=== PATIENT | male | born 1950 | race Caucasian/White ===

== ENCOUNTER → 2023-01-15 | Outpatient (CLI) | payer MEDICARE, OTHER ==
[~2023-01-15] MED LIST: DILANTIN 100MG100 MG; INDOCIN50 MG PO; PHENOBARBITAL100 M1
== END ==
LOC: COL.RAD 10:19
DX: R16.1 Splenomegaly, not elsewhere classified (principal); D69.6 Thrombocytopenia, unspecified

== ENCOUNTER 2024-01-21 10:00 | Outpatient (RCR) | payer MEDICARE, OTHER ==
[2023-12-31 16:11] VITALS: PULSE 78; TEMP 99
[2024-01-07 10:01] VITALS: BP 147/71; PULSE 75; TEMP 97.8
[2024-01-14 10:17] VITALS: BP 115/57; PULSE 53; TEMP 98.5
[2024-01-14 10:43] LABS: ALBUMIN 3.8 gm/dL (3.4-4.8); BILIRUBIN,TOTAL 0.5 mg/dL (0.2-1.2); CALCIUM 9.3 mg/dL (8.4-10.2); CREATININE, serum 0.94 mg/dL (0.72-1.25); POTASSIUM 4.2 mmol/L (3.5-4.5); TOTAL PROTEIN 6.3 gm/dL (6.2-8.1)
[2024-01-14 10:52] LABS: HEMATOCRIT 42.7 % (42.0-52.0); MEAN CELL VOLUME 88 fl (80.0-100.0); MEAN CORPUSCULAR HEMOGLOBIN 27 pg (27-31); MEAN CORPUSCULAR HGB CONC 30 g/dl (33.0-37.0); MEAN PLATELET VOLUME 11.3 fl (7.4-10.4); PLATELET COUNT 379 K/mm3 (130-400); RED BLOOD COUNT 4.87 M/mm3 (4.20-5.60); REDCELL DISTRIBUTION WIDTH-CV 19.7 % (11.5-14.5)
[2024-01-14 11:36] LABS: LYMPHOCYTE 8 % (20.0-51.0); NEUTROPHILS 84 % (42.0-75.2); OVALOCYTES 2+; PLATELET ESTIMATE NORMAL (NORMAL); SCHISTOCYTES 1+
[2024-01-14 11:37] LABS: BURR CELLS 1+
[~2024-01-21] VITALS: Ht 182.9 cm; Wt 92.0 kg
[~2024-01-21 10:00] MED LIST changes: +ASPIRIN E.C. 8181 MG PO; +FIRST-MOUTHWASH1 KIT PO; +KEPPRA750 MG PO; +NOXAFILTAB PO; +NS Flush 10 ML SYRINGE (Power PICC Line - 10 mL PRN) ICA; +NS Flush 10 ML SYRINGE (Power PICC Line - 10 mL Q12hr) ICA SCH; +ZOVIRAX800 MG PO
[2024-01-21 10:13] VITALS: BP 108/67; PULSE 66; TEMP 98.6
[2024-01-21 10:35] LABS: HEMATOCRIT 45.2 % (42.0-52.0); HEMOGLOBIN 13.9 g/dl (13.5-18.0); MEAN CELL VOLUME 86 fl (80.0-100.0); MEAN CORPUSCULAR HEMOGLOBIN 27 pg (27-31); MEAN CORPUSCULAR HGB CONC 31 g/dl (33.0-37.0); PLATELET COUNT 144 K/mm3 (130-400); RED BLOOD COUNT 5.23 M/mm3 (4.20-5.60); REDCELL DISTRIBUTION WIDTH-CV 19.5 % (11.5-14.5)
[2024-01-21 10:45] LABS: ALBUMIN 4.1 gm/dL (3.4-4.8); BILIRUBIN,TOTAL 0.9 mg/dL (0.2-1.2); CALCIUM 9.4 mg/dL (8.4-10.2); CREATININE, serum 1.2 mg/dL (0.72-1.25); POTASSIUM 4.8 mmol/L (3.5-4.5); TOTAL PROTEIN 6.6 gm/dL (6.2-8.1)
[2024-01-21 11:04] LABS: LYMPHOCYTE 20 % (20.0-51.0); NEUTROPHILS 77 % (42.0-75.2); OVALOCYTES 1+; PLATELET ESTIMATE NORMAL (NORMAL)
== END 2024-01-21 14:05 | disposition home or self-care (01) ==
LOC: EUO 10:00
PROVIDERS: Internal Medicine
DX: C92.01 Acute myeloblastic leukemia, in remission (principal); D69.0 Allergic purpura

== ENCOUNTER 2024-02-04 10:00 | Outpatient (RCR) | payer MEDICARE, OTHER ==
[2024-01-28 10:24] VITALS: BP 117/67; PULSE 65; TEMP 98
[2024-01-28 10:41] LABS: HEMATOCRIT 41.9 % (42.0-52.0); HEMOGLOBIN 13.4 g/dl (13.5-18.0); MEAN CELL VOLUME 85 fl (80.0-100.0); MEAN CORPUSCULAR HEMOGLOBIN 27 pg (27-31); MEAN CORPUSCULAR HGB CONC 32 g/dl (33.0-37.0); RED BLOOD COUNT 4.96 M/mm3 (4.20-5.60); REDCELL DISTRIBUTION WIDTH-CV 19.3 % (11.5-14.5)
[2024-01-28 10:43] LABS: PLATELET COUNT 32 K/mm3 (130-400)
[2024-01-28 11:08] LABS: ALBUMIN 3.9 gm/dL (3.4-4.8); BILIRUBIN,TOTAL 0.6 mg/dL (0.2-1.2); CALCIUM 9.8 mg/dL (8.4-10.2); CREATININE, serum 1.11 mg/dL (0.72-1.25); POTASSIUM 4.2 mmol/L (3.5-4.5); TOTAL PROTEIN 6.5 gm/dL (6.2-8.1)
[2024-01-28 12:55] LABS: EOSINOPHIL 6 % (0-4); LYMPHOCYTE 43 % (20.0-51.0); NEUTROPHILS 33 % (42.0-75.2)
[2024-01-28 12:56] LABS: ANISOCYTOSIS 2+; HYPOCHROMIA 2+; PLATELET ESTIMATE DECREASED (NORMAL)
[2024-01-28 12:57] LABS: OVALOCYTES 2+
[~2024-02-04] VITALS: Ht 182.9 cm; Wt 95.3 kg
[~2024-02-04 10:00] MED LIST changes: +NS Flush 10 ML SYRINGE (PICC Line - 10 mL Daily if not in use) ICA SCH; +NS Flush 10 ML SYRINGE (PICC Line - 10 mL PRN) ICA; -NS Flush 10 ML SYRINGE (Power PICC Line - 10 mL PRN) ICA; -NS Flush 10 ML SYRINGE (Power PICC Line - 10 mL Q12hr) ICA SCH
[2024-02-04 10:09] VITALS: BP 110/75; PULSE 65; TEMP 98.9
[2024-02-04 10:32] LABS: HEMATOCRIT 41.5 % (42.0-52.0); HEMOGLOBIN 12.8 g/dl (13.5-18.0); MEAN CELL VOLUME 86 fl (80.0-100.0); MEAN CORPUSCULAR HEMOGLOBIN 27 pg (27-31); MEAN CORPUSCULAR HGB CONC 31 g/dl (33.0-37.0); MEAN PLATELET VOLUME 10.8 fl (7.4-10.4); PLATELET COUNT 308 K/mm3 (130-400); RED BLOOD COUNT 4.83 M/mm3 (4.20-5.60); REDCELL DISTRIBUTION WIDTH-CV 19.9 % (11.5-14.5)
[2024-02-04 10:47] LABS: ALBUMIN 3.9 gm/dL (3.4-4.8); BILIRUBIN,TOTAL 0.6 mg/dL (0.2-1.2); CALCIUM 9.7 mg/dL (8.4-10.2); CREATININE, serum 1.07 mg/dL (0.72-1.25); TOTAL PROTEIN 6.4 gm/dL (6.2-8.1)
[2024-02-04 11:41] LABS: BAND 7 % (0-10); BASOPHIL 1 % (0-2); EOSINOPHIL 4 % (0-4); LYMPHOCYTE 25 % (20.0-51.0); NEUTROPHILS 56 % (42.0-75.2); PLATELET ESTIMATE NORMAL (NORMAL)
[2024-02-04 11:43] LABS: ANISOCYTOSIS 1+; HYPOCHROMIA 2+; OVALOCYTES 2+
--- NOTE | 2024-02-10 12:00 | NUR ---
Per report pt to have port placed tomorrow.lab orders sent to ambulatory.
== END 2024-02-10 12:16 | disposition home or self-care (01) ==
LOC: EUO 10:00
PROVIDERS: Internal Medicine
DX: D69.6 Thrombocytopenia, unspecified (principal); C92.01 Acute myeloblastic leukemia, in remission

== ENCOUNTER 2024-02-11 06:26 | Day surgery (SDC) | payer MEDICARE, OTHER ==
[~2024-02-11] VITALS: Ht 180.3 cm; Wt 97.7 kg
[~2024-02-11 06:26] MED LIST changes: +LR 1,000 ML IV SCH; -NS Flush 10 ML SYRINGE (PICC Line - 10 mL Daily if not in use) ICA SCH; -NS Flush 10 ML SYRINGE (PICC Line - 10 mL PRN) ICA
[2024-02-11 06:57] VITALS: BP 130/59; PULSE 65; TEMP 97.6
--- NOTE | 2024-02-11 07:14 | NUR ---
The patient ambulated back to [facility] independently using a steady gait and appeared to tolerate the activity well. Vital signs obtained. Cosnents signed. The patient has a PICC line in place to his right upper extremity that appears without redness or edema and flushes easily with good blood return. Blood was taken from the PICC line for labs as ordered. Assessment completed. Home medications reconcilled. Call light is within reach. at bedside. Warm blankety provided. Denies any further needs at this time.
[2024-02-11 07:16] LABS: HEMATOCRIT 40.4 % (42.0-52.0); HEMOGLOBIN 12.6 g/dl (13.5-18.0); MEAN CELL VOLUME 85 fl (80.0-100.0); MEAN CORPUSCULAR HEMOGLOBIN 26 pg (27-31); MEAN CORPUSCULAR HGB CONC 31 g/dl (33.0-37.0); MEAN PLATELET VOLUME 12.1 fl (7.4-10.4); PLATELET COUNT 502 K/mm3 (130-400); RED BLOOD COUNT 4.77 M/mm3 (4.20-5.60); REDCELL DISTRIBUTION WIDTH-CV 20.1 % (11.5-14.5)
[2024-02-11 07:40] LABS: ALBUMIN 3.9 gm/dL (3.4-4.8); BILIRUBIN,TOTAL 0.6 mg/dL (0.2-1.2); CALCIUM 8.8 mg/dL (8.4-10.2); CREATININE, serum 1.08 mg/dL (0.72-1.25); TOTAL PROTEIN 6.4 gm/dL (6.2-8.1)
[2024-02-11 10:01] VITALS: BP 105/47; PULSE 59; TEMP 97.1
[2024-02-11 10:15] VITALS: BP 118/55; PULSE 56
[2024-02-11] MEDS ORDERED: Ondansetron 4 MG/2 ML VIAL IV PRN (10:15)
[2024-02-11] MEDS ORDERED: Morphine 4 MG/ML VIAL IV PRN (10:15)
[2024-02-11] MEDS ORDERED: Acetaminophen 500 MG TAB PO PRN (10:15)
[2024-02-11 10:30] VITALS: BP 127/59; PULSE 52
[2024-02-11 10:45] VITALS: BP 131/62; PULSE 54
[2024-02-11] MEDS ORDERED: Ketorolac 30 MG/ML VIAL ONE (10:53)
[2024-02-11 11:00] VITALS: BP 128/60; PULSE 56
--- NOTE | 2024-02-11 11:15 | NUR ---
1001 RETURNS TO ROOM 2 FROM OR PER CART. AROUSES SPONTANEOUSLY, HOB SLIGHTLY ELEVATED. RESP UNLABORED. FAMILIAIZED WITH SURROUNDINGS. VITAL SIGNS OBTAINED. DRESSING RIGHT CHEST AND BANDAID RIGH NECK CLEAN DRY AND INTACT. CALL LIGHT AT SIDE. IN ROOM 1015 HOB ELEVATED 70 DEGREES. TOLERATES PO JUICE WITHOUT NAUSEA 1035 IV SERVICES HERE. PICC LINE RIGHT ARM DC'D. DRESSING CLEAN DRY AND INTACT. HOB FLAT 1050 HOB REMAINS FLAT. DISCHARGE INSTRUCTIONS REVIEWED. PATIENT AND VERBALIZE UNDERSTANDING. COPY PROVIDED IN DISCHARGE FOLDER 1110 SITS ON EDGE OF BED. DRESSES SELF, THEN AMBULATES TO BATHROOM WITH STANDBY ASSIST. ADMITS TO VOIDING WITHOUT DIFFICULTY.
[2024-02-11 11:26] LABS: ANISOCYTOSIS 2+; BAND 8 % (0-10); BASOPHIL 1 % (0-2); EOSINOPHIL 10 % (0-4); HYPOCHROMIA 3+; LYMPHOCYTE 27 % (20.0-51.0); NEUTROPHILS 45 % (42.0-75.2); PLATELET ESTIMATE INCREASED (NORMAL)
[2024-02-11 11:27] LABS: OVALOCYTES 1+
== END 2024-02-11 11:15 | disposition home or self-care (01) ==
LOC: SDCO 06:26
PROVIDERS: Internal Medicine
DX: Z45.2 Encounter for adjustment and management of vascular access device (principal); C92.01 Acute myeloblastic leukemia, in remission; D69.6 Thrombocytopenia, unspecified; G47.33 Obstructive sleep apnea (adult) (pediatric)
CPT/HCPCS: C1788; J0690; J1644; J1885; J2704; J7120

== ENCOUNTER 2024-08-07 17:50 | Emergency (ER) | payer MEDICARE, OTHER ==
[~2024-08-07] VITALS: Ht 180.3 cm; Wt 93.6 kg
[~2024-08-07 17:50] MED LIST changes: +DIFLUCAN200 MG PO; -LR 1,000 ML IV SCH
[2024-08-07 18:05] VITALS: BP 135/82; TEMP 97.9
[2024-08-07 19:39] VITALS: PULSE 70
== END 2024-08-07 19:39 | disposition home or self-care (01) ==
LOC: COL.ER 17:50
DX: S01.111A Laceration without foreign body of right eyelid and periocular area, initial encounter (principal); C92.00 Acute myeloblastic leukemia, not having achieved remission; Z79.899 Other long term (current) drug therapy; W18.2XXA Fall in (into) shower or empty bathtub, initial encounter

== ENCOUNTER 2024-09-09 12:54 | Outpatient (RCR) | payer MEDICARE, OTHER ==
[~2024-09-09] VITALS: Ht 180.3 cm; Wt 93.3 kg
[2024-09-09] MEDS ORDERED: diphenhydrAMINE 25 MG CAP PO SCH (13:15)
[2024-09-09] MEDS ORDERED: NS 250 ML IV SCH (13:15)
[2024-09-09] MEDS ORDERED: Acetaminophen 325 MG TAB PO SCH (13:15)
[2024-09-09 14:28] VITALS: BP 117/63; PULSE 59; TEMP 98.5
--- NOTE | 2024-09-09 14:32 | NUR ---
Platelet transfusion verified by LARON Ayala.
[2024-09-09 14:45] VITALS: BP 122/67; PULSE 60; TEMP 97.8
[2024-09-09 15:00] VITALS: BP 124/65; PULSE 59; TEMP 98.5
[2024-09-09 15:30] VITALS: BP 127/68; PULSE 63; TEMP 98.1
[2024-09-09 15:59] VITALS: BP 131/64; PULSE 60; TEMP 98.2
--- NOTE | 2024-09-09 16:19 | NUR ---
Patient discharged via ambulatory.
== END 2024-09-09 16:19 | disposition home or self-care (01) ==
LOC: EUO 12:54
DX: D69.6 Thrombocytopenia, unspecified (principal)
CPT/HCPCS: J7050; P9035